=== PATIENT | male | born 1970 | race Caucasian/White ===

== ENCOUNTER 2016-08-21 17:44 | Emergency (ER) | payer BC, OTHER ==
[~2016-08-21] VITALS: Ht 188 cm; Wt 88.6 kg
[2016-08-21] MEDS ORDERED: FLEXERIL10 MG PO (19:53)
[2016-08-21] MEDS ORDERED: ULTRAM50 MG PO (19:53)
[2016-08-21 20:05] VITALS: BP 136/78
== END 2016-08-21 20:06 | disposition home or self-care (01) ==
LOC: EME 17:44
DX: S39.012A Strain of muscle, fascia and tendon of lower back, initial encounter (principal); X58.XXXA Exposure to other specified factors, initial encounter; M54.5 Low back pain
CPT/HCPCS: 72100; 99281; 99284; J1885; J3010